=== PATIENT | male | born 1955 | race Caucasian/White ===

== ENCOUNTER → 2017-10-02 | Outpatient (CLI) | payer OTHER ==
--- NOTE | 2017-10-02 12:35 | P.STRESS ---
- Stress Test Note Stress Test Results/Findings: Exam Performed: stress test Exam Date: 10/02/17 Reason for Exam: Chest Pain Height: 6 ft Weight: 115.666 kg Protocol: Gene Stress Test Stage: 2 Duration of Exercise: 7:35 Resting Heart Rate: 71 Resting Blood Pressure: 150/94 Maximum Achieved Heart Rate: 139 Maximum Achieved Blood Pressure: 203/88 85% PMHR: 136 100% PMHR: 160 METS: 9.1 Technologist Comment: Stress Test Results/Findings: Baseline EKG showed sinus rhythm with normal NV and QRS duration. EKGs taken during and after the x-ray did not reveal any changes to sized ischemia. Final impression: #1. Negative stress test. #2. Patient did not experience any chest pain. #3. No arrhythmias noted. #4. Patient's exercise capacity is fair
--- NOTE | 2017-10-03 16:07 | EST ---
Stress Test Results/Findings: Exam Performed: stress test Exam Date: 10/02/17 Reason for Exam: Chest Pain Height: 6 ft Weight: 115.666 kg Protocol: Gene Stress Test Stage: 2 Duration of Exercise: 7:35 Resting Heart Rate: 71 Resting Blood Pressure: 150/94 Maximum Achieved Heart Rate: 139 Maximum Achieved Blood Pressure: 203/88 85% PMHR: 136 100% PMHR: 160 METS: 9.1 Technologist Comment: Stress Test Results/Findings: Baseline EKG showed sinus rhythm with normal MN and QRS duration. EKGs taken during and after the x-ray did not reveal any changes to sized ischemia. Final impression: #1. Negative stress test. #2. Patient did not experience any chest pain. #3. No arrhythmias noted. #4. Patient's exercise capacity is fair MTDD
== END | disposition home or self-care (01) ==
LOC: RADNMMAIN 11:03
PROVIDERS: ATTEND Family Medicine
DX: R07.9 Chest pain, unspecified (principal)
CPT/HCPCS: 93017